=== PATIENT | female | born 1995 | race Caucasian/White ===

== ENCOUNTER 2019-09-15 13:36 | Emergency (ER) | payer BC ==
[~2019-09-15] VITALS: Ht 157.5 cm; Wt 69.6 kg
[2019-09-15 14:12] VITALS: BP 133/74
--- NOTE | 2019-09-15 14:41 | NUR ---
23 Y/O F C/O VAGINAL BLEEDING, ABDOMINAL AND BACK PAIN X 3 DAYS. PT STATES PLANNED [facility] TOLD HER SHE IS 5 WEEKS . HCG TEST PERFORMED TODAY IS NEGATIVE. PT HAS BEEN HAVING BLEEDING X3 DAYS WITH CLOTS TODAY. PT DENIES ANY FEVER, CHILLS, N/V. PT STATES SHE HAD A MISCARIAGE X 6 YEARS AGO. NO OTHER PREGNANCIES. PT POSITIONED FOR COMFORT, BED LOWERED, MOTHER AT BEDSIDE. [facility] HX: PREVIOUS MISCARIAGE.
[2019-09-15 14:54] LABS: APPEARANCE,URINE CLOUDY (CLEAR); BILIRUBIN,URINE NEGATIVE (NEGATIVE); BLOOD, URINE 3+ (NEGATIVE); COLOR,URINE RED (YELLOW); LEUKOCYTE ESTERASE ,URINE TRACE (NEGATIVE); NITRITE, URINE NEGATIVE (NEGATIVE); UGLUCOSE NEGATIVE (NEGATIVE)
[2019-09-15 14:57] LABS: BASOPHILS # (AUTO) 0.1 K/uL (0.00-0.22); BASOPHILS % (AUTO) 0.7 % (0.0-2.0); EOSINOPHILS # (AUTO) 0.1 K/uL (0-0.4); EOSINOPHILS % (AUTO) 1.4 % (0.0-4.0); HEMATOCRIT 42.4 % (36-48); HEMOGLOBIN 14.3 g/dL (12.0-16.0); LYMPHOCYTES # (AUTO) 2.4 K/uL (2.5-16.5); LYMPHOCYTES % (AUTO) 24.4 % (20.5-51.1); MEAN CORPUSCULAR HEMOGLOBIN 33 pg (27-31); MEAN CORPUSCULAR HGB CONC 34 g/dL (33-37); MEAN CORPUSCULAR VOLUME 96.8 fL (80-94); MONOCYTES # (AUTO) 0.7 K/uL (0.8-1.0); MONOCYTES % (AUTO) 6.9 % (1.7-9.3); NEUTROPHILS # (AUTO) 6.7 K/uL (1.8-7.7); NEUTROPHILS % (AUTO) 66.6 % (42.2-75.2); PLATELET COUNT (AUTO) 264 K/uL (140-450); RED BLOOD CELL COUNT(AUTO) 4.38 MIL/uL (4.20-5.40); RED CELL DISTRIBUTION WIDTH 13.3 % (11.6-13.7)
--- NOTE | 2019-09-15 15:07 | NUR ---
UTRASOUND AT PT BEDSIDE PERFORMING ORDERED TEST.
[2019-09-15 15:09] LABS: RBC,URINE 80-100 /HPF (0-5)
[2019-09-15 16:27] VITALS: BP 133/74
--- NOTE | 2019-09-15 16:28 | NUR ---
Patient discharged with v/s stable. Written and verbal after care instructions given and explained. Patient alert, oriented and verbalized understanding of instructions. Ambulatory with steady gait. All questions addressed prior to discharge. ID band removed. Patient advised to follow up with PMD. Rx of VITAMINS given. Patient educated on indication of medication including possible reaction and side effects. Opportunity to ask questions provided and answered.
== END 2019-09-15 16:28 | disposition home or self-care (01) ==
LOC: MED 13:36
DX: N94.6 Dysmenorrhea, unspecified (principal); N83.201 Unspecified ovarian cyst, right side; M54.5 Low back pain
CPT/HCPCS: 36415; 76830; 81001; 81025; 84702; 85025; 86900; 86901; 87086; 99284; Q0092; 81002